=== PATIENT | female | born 1995 | race American Indian/Alaskan Native ===

== ENCOUNTER 2017-03-26 09:48 | Emergency (ER) | payer SELFPAY ==
--- NOTE | 2017-03-26 10:34 | Emergency Department Report ---
Chief Complaint: Abdominal Pain Stated Complaint: ABD PAIN Time Seen by Provider: 03/26/17 10:30 - HPI History of Present Illness: PT c/o R sided abd pain x months. PT states it hurts worse when she has gas. - ROS Review of Systems: -n/v - dysuria - changes in menstrual cycle - Exam Physical Exam: PT looks well, non toxic. steady gait abd soft and not tender MSE screening note: Focused history and physical exam performed. Due to findings the following was ordered: labs ED Disposition for MSE Condition: Stable
[2017-03-26 10:50] LABS: Basophils % (Auto) 0.5 % (0.0-1.8); Eosinophils % (Auto) 5.1 % (0.0-4.3); Hematocrit 37.5 % (30.3-42.9); Hemoglobin 12.4 gm/dl (10.1-14.3); Mean Corpuscular HGB Conc 33 % (30-34); Mean Corpuscular Hemoglobin 30 pg (28-32); Mean Corpuscular Volume 90 fl (79-97); Platelet Count 206 K/mm3 (140-440); Red Blood Count 4.16 M/mm3 (3.65-5.03); Red Cell Distribution Width 13.2 % (13.2-15.2); White Blood Count 4.6 K/mm3 (4.5-11.0)
[2017-03-26 11:03] LABS: Alanine Aminotransferase 23 units/L (7-56); Albumin 4.3 g/dL (3.9-5); Albumin/Globulin Ratio 1.4 %; Alkaline Phosphatase 49 units/L (35-129); Anion Gap 17 mmol/L; BUN/Creatinine Ratio 12.85; Blood Urea Nitrogen 9 mg/dL (7-17); Calcium 9.3 mg/dL (8.4-10.2); Carbon Dioxide 24 mmol/L (22-30); Chloride 101.9 mmol/L (98-107); Glucose 90 mg/dL (65-100); Potassium 4.4 mmol/L (3.6-5.0); Sodium 138 mmol/L (137-145); Total Protein 7.4 g/dL (6.3-8.2)
[2017-03-26 11:34] LABS: Bilirubin,Urine NEG (Negative); Blood,Urine LG (Negative); Ketones,Urine NEG (Negative); Leukocyte Esterase,Urine NEG (Negative); Mucus,Urine 3+ /HPF; Nitrite,Urine NEG (Negative); Urobilinogen,Urine < 2.0 mg/dL (<2.0)
[2017-03-26 11:35] LABS: RBC,Urine > 182.0 /HPF (0.0-6.0)
[2017-03-26 14:23] VITALS: BP 114/70
--- NOTE | 2017-03-26 15:12 | Emergency Department Report ---
ED Abdominal Pain HPI - General Chief Complaint: Abdominal Pain Stated Complaint: ABD PAIN Time Seen by Provider: 03/26/17 10:30 Source: patient Mode of arrival: Ambulatory Limitations: No Limitations - History of Present Illness Initial Comments: 22 year old female presents to ED with lower abdominal pain x 1 month. patient states she is but unsure of how far along her is at the moment. patient states LMP was February. patient denies vaginal bleeding , discharge or dysuria. patient is stable, neurologically intact and in no acute distress. MD Complaint: abdominal pain -: Gradual, month(s) Location: RLQ Radiation: RLQ Severity: mild Severity scale (0 -10): 0 Quality: cramping Consistency: now resolved Improves With: nothing Worsens With: nothing Associated Symptoms: denies: nausea, vomiting, diarrhea, fever, dysuria - Related Data LMP Date: 03/01/17 Allergies Allergy/AdvReac Type Severity Reaction Status Date / Time No Known Allergies Allergy Verified 03/26/17 10:35 ED Review of Systems ROS: Stated complaint: ABD PAIN Other details as noted in HPI Constitutional: denies: chills, fever Eyes: denies: eye pain, eye discharge, vision change ENT: denies: ear pain, throat pain Respiratory: denies: cough, shortness of breath, wheezing Cardiovascular: denies: chest pain, palpitations Endocrine: no symptoms reported Gastrointestinal: abdominal pain. denies: nausea, vomiting, diarrhea Genitourinary: denies: urgency, dysuria, discharge Musculoskeletal: denies: back pain, joint swelling, arthralgia Skin: denies: rash, lesions Neurological: denies: headache, weakness, paresthesias Psychiatric: denies: anxiety, depression Hematological/Lymphatic: denies: easy bleeding, easy bruising ED Past Medical Hx - Past Medical History Previous Medical History?: No - Surgical History Past Surgical History?: No - Social History Smoking Status: Never Smoker Substance Use Type: None ED Physical Exam - General Limitations: No Limitations General appearance: alert, in no apparent distress - Head Head exam: Present: atraumatic, normocephalic - Eye Eye exam: Present: normal appearance - ENT ENT exam: Present: mucous membranes moist - Neck Neck exam: Present: normal inspection - Respiratory Respiratory exam: Present: normal lung sounds bilaterally. Absent: respiratory distress - Cardiovascular Cardiovascular Exam: Present: regular rate, normal rhythm. Absent: systolic murmur, diastolic murmur, rubs, gallop - GI/Abdominal GI/Abdominal exam: Present: soft, normal bowel sounds, other (negative Obturator sign, negative McBurneys sign, negative Psoas sign). Absent: distended, tenderness, guarding, rebound - Extremities Exam Extremities exam: Present: normal inspection, full ROM - Back Exam Back exam: Present: normal inspection, full ROM. Absent: tenderness - Neurological Exam Neurological exam: Present: alert, oriented X3, normal gait - Psychiatric Psychiatric exam: Present: normal affect, normal mood - Skin Skin exam: Present: warm, dry, intact, normal color. Absent: rash ED Course Vital Signs 03/26/17 03/26/17 10:32 14:22 Temperature 98.1 F 98.1 F Pulse Rate 86 74 Respiratory 16 18 Rate Blood Pressure 123/81 Blood Pressure 114/70 [Left] O2 Sat by Pulse 100 100 Oximetry ED Medical Decision Making - Lab Data Result diagrams: 03/26/17 10:36 03/26/17 10:36 - Radiology Data Radiology results: report reviewed U/S No intrauterine gestational sac. Cyst right ovary. Unremarkable right lower quadrant. No masses identified. - Medical Decision Making 22 year old female presents to ED with right lower quadrant pain. patient is approx 3.5 weeks . no acute findings on ultrasound present aside from right ovarian cyst. patient understands to return to this ED within 48 hours for HCG recheck. patient is stable, neurologically intact and in no acute distress. patient has no tenderness on examination and states she is no longer in pain. Patient also understands to return to ED immediately if symptoms worsen or new symptoms occur. Critical care attestation.: If time is entered above; I have spent that time in minutes in the direct care of this critically ill patient, excluding procedure time. ED Disposition Clinical Impression: Abdominal pain during in first trimester Disposition: DC-01 TO HOME OR SELFCARE Is pt being admited?: No Does the pt Need Aspirin: No Condition: Stable Instructions: Abdominal Pain (ED) Referrals: PRIMARY CARE,MD [Primary Care Provider] - 2-3 Days (Return to ED in 48 hours for HCG recheck. ) Forms: Work/School Release Form(ED)
--- NOTE | 2017-03-26 16:04 | Ultrasound Report ---
Pelvic and transvaginal sonography: History: and pain. Right lower quadrant pain. Findings: Uterus measures 10.8 x 4.5 x 4.7 cm. Endometrial thickness 1.4 cm. No mass within the endometrium. No gestational sac within the uterus. Right ovary 4.7 x 3.07 x 2.9 cm. Left ovary 4.05 x 1.9 x 1.9 cm. Cyst in the right ovary measures 3.4 x 2.4 x 3.2 cm. There is free fluid noted in the cul-de-sac. Impression: No intrauterine gestational sac. Cyst right ovary. Sonogram of right lower quadrant. Findings: The appendix is not visualized. Bowel gas pattern is noted. No masses identified. Impression: Unremarkable right lower quadrant.
[2017-03-26] MEDS ORDERED: TYLENOL PO ONE (16:09)
== END 2017-03-26 16:35 | disposition home or self-care (01) ==
LOC: ED 09:48
DX: O26.891 Other specified pregnancy related conditions, first trimester (principal); Z3A.01 Less than 8 weeks gestation of pregnancy
CPT/HCPCS: 36415; 76705; 76801; 76817; 80053; 81001; 84702; 84703; 85025; 86900; 86901; 87210; 87591; 99284

== ENCOUNTER 2017-04-22 15:08 | Emergency (ER) | payer SELFPAY ==
[2017-04-22 15:44] VITALS: BP 108/62
--- NOTE | 2017-04-22 15:45 | Emergency Department Report ---
Chief Complaint: OB/Uterine Contractions Stated Complaint: 8 WKS , CRAMPING Time Seen by Provider: 04/22/17 15:40 - HPI History of Present Illness: pt states she is eight weeks and having pains. pt states she was told she was on 03-26-17 when she was seen in the ED. - ROS Review of Systems: - vaginal bleeding + intermittent crampy pains to lower abd - Exam Vital Signs: Vital Signs 04/22/17 15:39 Temperature 98.4 F Pulse Rate 89 Respiratory 16 Rate Blood Pressure 108/62 O2 Sat by Pulse 100 Oximetry Physical Exam: PT looks well, non toxic steady gait gcs 15 gu exam not performed in triage MSE screening note: Focused history and physical exam performed. Due to findings the following was ordered: ED Disposition for MSE Condition: Stable
[2017-04-22 16:58] LABS: Basophils % (Auto) 0.5 % (0.0-1.8); Eosinophils % (Auto) 2.4 % (0.0-4.3); Hematocrit 38.6 % (30.3-42.9); Mean Corpuscular HGB Conc 34 % (30-34); Mean Corpuscular Hemoglobin 30 pg (28-32); Mean Corpuscular Volume 90 fl (79-97); Platelet Count 233 K/mm3 (140-440); Red Cell Distribution Width 12.8 % (13.2-15.2); White Blood Count 4.1 K/mm3 (4.5-11.0)
[2017-04-22 17:15] LABS: Alanine Aminotransferase 18 units/L (7-56); Albumin 4.4 g/dL (3.9-5); Albumin/Globulin Ratio 1.1 %; Alkaline Phosphatase 43 units/L (35-129); BUN/Creatinine Ratio 13.33; Blood Urea Nitrogen 8 mg/dL (7-17); Calcium 9.7 mg/dL (8.4-10.2); Carbon Dioxide 23 mmol/L (22-30); Glucose 83 mg/dL (65-100); Total Protein 8.3 g/dL (6.3-8.2)
[2017-04-22 17:16] LABS: Anion Gap 18 mmol/L; Chloride 95.4 mmol/L (98-107); Potassium 4.1 mmol/L (3.6-5.0); Sodium 132 mmol/L (137-145)
--- NOTE | 2017-04-22 19:00 | Ultrasound Report ---
FINAL REPORT EXAM: US OB TRANSVAGINAL HISTORY: , pelvic pain and cramping . LMP 03/01/2017 with estimated age 7 weeks 3 days and EDC 12/06/2017. Status serum HCG quantitation 132, 874 TECHNIQUE: Ultrasound of the pelvis using transabdominal and transvaginal imaging PRIORS: None. FINDINGS: Uterus: Uterus is enlarged in size, retroverted in position, and normal and homogeneous in echogenicity without focal fibroid formation. The uterus measures 9.6 x 4.5 x 6.4 cm in size. There is a single early viable intrauterine gestation noted in the fundus. Intrauterine gestation: There is a single intrauterine gestation identified with both a pole and yolk sac. heart rate is monitored at 164 BPM using M-mode doppler. [place]-rump length measurement of 17.2 mm corresponds to estimated age 8 weeks 1 days with EDC 12/01/2017. Ovaries: Both ovaries appear normal in echogenicity with normal blood flow bilaterally. The right ovary is enlarged. The right ovary measures 4.0 x 3.3 x 2.5 cm on the left ovary measures 2.7 x 1.2 x 3.2 cm in size. Within the right ovary, there is a 2.7 cm hypoechoic avascular focus and a 1.6 cm mildly complex cystic focus containing internal debris. Other: There is no evidence for solid adnexal mass is seen. There is a mild amount of nonspecific free fluid in the cul-de-sac. IMPRESSION: Single intrauterine viable with an approximate age of 8 weeks 1 days. Hypoechoic avascular focus in the right ovary is likely a corpus luteum.
--- NOTE | 2017-04-22 19:00 | Ultrasound Report ---
FINAL REPORT EXAM: US OB \T\lt; = 14 WEEKS FETUS HISTORY: , pelvic pain and cramping . LMP 03/01/2017 with estimated age 7 weeks 3 days and EDC 12/06/2017. Status serum HCG quantitation 132, 874 TECHNIQUE: Ultrasound of the pelvis using transabdominal and transvaginal imaging PRIORS: None. FINDINGS: Uterus: Uterus is enlarged in size, retroverted in position, and normal and homogeneous in echogenicity without focal fibroid formation. The uterus measures 9.6 x 4.5 x 6.4 cm in size. There is a single early viable intrauterine gestation noted in the fundus. Intrauterine gestation: There is a single intrauterine gestation identified with both a pole and yolk sac. heart rate is monitored at 164 BPM using M-mode doppler. [place]-rump length measurement of 17.2 mm corresponds to estimated age 8 weeks 1 days with EDC 12/01/2017. Ovaries: Both ovaries appear normal in echogenicity with normal blood flow bilaterally. The right ovary is enlarged. The right ovary measures 4.0 x 3.3 x 2.5 cm on the left ovary measures 2.7 x 1.2 x 3.2 cm in size. Within the right ovary, there is a 2.7 cm hypoechoic avascular focus and a 1.6 cm mildly complex cystic focus containing internal debris. Other: There is no evidence for solid adnexal mass is seen. There is a mild amount of nonspecific free fluid in the cul-de-sac. IMPRESSION: Single intrauterine viable with an approximate age of 8 weeks 1 days. Hypoechoic avascular focus in the right ovary is likely a corpus luteum.
--- NOTE | 2017-04-23 15:09 | ED Elopement Review ---
ED Pt Elopement review - Results review Lab results: Laboratory Tests 04/22/17 04/22/17 04/22/17 16:45 16:45 16:45 WBC 4.1 L RBC 4.30 Hgb 13.0 Hct 38.6 MCV 90 MCH 30 MCHC 34 RDW 12.8 L Plt Count 233 Lymph % (Auto) 31.6 [place] % (Auto) 8.4 H Eos % (Auto) 2.4 Baso % (Auto) 0.5 Lymph # 1.3 [place] # 0.3 Eos # 0.1 Baso # 0.0 Seg Neutrophils % 57.1 Seg Neutrophils # 2.3 Sodium 132 L Potassium 4.1 Chloride 95.4 L Carbon Dioxide 23 Anion Gap 18 BUN 8 Creatinine 0.6 L Estimated GFR > 60 BUN/Creatinine Ratio 13.33 Glucose 83 Calcium 9.7 Total Bilirubin 0.40 AST 16 ALT 18 Alkaline Phosphatase 43 Total Protein 8.3 H Albumin 4.4 Albumin/Globulin Ratio 1.1 HCG, Quant [id number] H - Call Back decision Pt Call Back Decision: Pt to F/U with PMD
== END 2017-04-23 00:20 | disposition left against medical advice (07) ==
LOC: ED 15:08
DX: O26.891 Other specified pregnancy related conditions, first trimester (principal); R10.30 Lower abdominal pain, unspecified; Z3A.08 8 weeks gestation of pregnancy; Z53.21 Procedure and treatment not carried out due to patient leaving prior to being seen by health care provider
CPT/HCPCS: 36415; 76801; 76817; 80053; 84702; 85025

== ENCOUNTER 2017-11-29 18:43 | Inpatient (IN) | payer MEDICAID ==
[2017-11-29] MEDS ORDERED: BRETHINE SUB-Q PRN ×2 (21:09→21:31)
[2017-11-29] MEDS ORDERED: BRETHINE IVP PRN ×2 (21:09→21:31)
[2017-11-29] MEDS ORDERED: XYLOCAINE 2% INFILTRATI ONE ×3 (21:09→23:54)
[2017-11-29] MEDS ORDERED: ePHEDrine SULFATE IV PRN ×2 (21:09→21:31)
[2017-11-29] MEDS ORDERED: POLYCILLIN/NS 2 GM/100 ML 2 GM/100 ML BAG IV ONE (21:09)
[2017-11-29] MEDS ORDERED: STADOL IV PRN (21:09)
[2017-11-29] MEDS ORDERED: MINERAL OIL PO PRN ×2 (21:09→21:31)
[2017-11-29] MEDS ORDERED: SUBLIMAZE IV PRN (21:31)
[2017-11-29] MEDS ORDERED: NARCAN 0.4 MG/1 ML IV PRN (21:31)
[2017-11-29] MEDS ORDERED: ZOFRAN IV PRN (21:31)
--- NOTE | 2017-11-29 21:31 | History and Physical Report ---
History of Present Illness Date of examination: 11/29/17 Date of admission: 11/29/17 20:53 Chief complaint: Labor History of present illness: Pt is a 22yo BF EDC 12/06/17; EGA 39 0/7 weeks presents to L&D complaining of RUC's q 2-4 mins. She received care at [facility] since 11 weeks, and course has been unremarkable. records were not available and GBS is Positive. Past History Past Medical History: no pertinent history Past Surgical History: no surgical history Social history: no significant social history, single - Obstetrical History Expected Date of Delivery: 12/06/17 Actual Gestation: 39 Week(s) 1 Day(s) : 1 Medications and Allergies Allergies Allergy/AdvReac Type Severity Reaction Status Date / Time No Known Allergies Allergy Verified 04/22/17 15:39 Home Medications Medication Instructions Recorded Confirmed Last Taken Type No Known Home Medications [No 11/30/17 11/30/17 Unknown History Reported Home Medications] Active Meds: Active Medications Butorphanol Tartrate (Stadol) 2 mg IV Q2H PRN PRN Reason: Pain , Severe (7-10) Ephedrine Sulfate (Ephedrine Sulfate) 10 mg IV Q2M PRN PRN Reason: Hypotension Ampicillin Sodium (Polycillin/Ns 2 Gm/100 Ml) 2 gm in 100 mls @ 100 mls/hr IV ONCE ONE PRN Reason: Protocol Stop: 11/29/17 22:08 Lactated Ringer's (Lactated Ringers) 1,000 mls @ 125 mls/hr IV DIRECT RISHABH Oxytocin/Sodium Chloride (Pitocin/Ns 20 Unit/1000ml Drip) 20 units in 1,000 mls @ 125 mls/hr IV DIRECT RISHABH Ampicillin Sodium (Polycillin/Ns 1 Gm/50 Ml) 1 gm in 50 mls @ 100 mls/hr IV Q4HR RISHABH PRN Reason: Protocol Mineral Oil (Mineral Oil) 30 ml PO QHS PRN PRN Reason: Constipation Terbutaline Sulfate (Brethine) 0.25 mg SUB-Q ONCE PRN PRN Reason: Hyperstimulation/Hypertonicity Terbutaline Sulfate (Brethine) 0.25 mg IVP ONCE PRN PRN Reason: Hyperstimulation/Hypertonicity Review of Systems All systems: negative - Vital Signs Vital signs: Vital Signs Temp Resp 98.6 F 18 11/29/17 19:28 11/29/17 19:28 Temp Pulse Resp BP Pulse Ox 98.6 F 78 18 132/83 11/29/17 19:28 11/29/17 19:33 11/29/17 19:28 11/29/17 19:33 - Physical Exam Breasts: Positive: deferred Cardiovascular: Regular rate Lungs: Positive: Clear to auscultation Abdomen: Positive: normal appearance Genitourinary (Female): Positive: normal external genitalia Vagina: Positive: normal moisture Uterus: Positive: enlarged Extremities: Positive: normal - Obstetrical FHR: category 1 Uterine Contraction Monitor Mode: External Cervical Dilatation: 5 Cervical Effacement Percentage: 80 station: -2 Uterine Contraction Pattern: Regular Uterine Tone Measurement Phase: Contraction Uterine Contraction Intensity: Strong/Firm Results Result Diagrams: 11/29/17 20:50 All other labs normal. Assessment and Plan - Patient Problems (1) 39 weeks gestation of Onset Date: 11/29/17 Current Visit: Yes Status: Acute Plan to address problem: A: IUP @ 39 0/7 weeks in labor + GBS P: Admit to L&D for expectant vaginal delivery IV Ampicillin Obtain records
[2017-11-29 21:48] LABS: Hemoglobin 12.4 gm/dl (10.1-14.3)
[2017-11-29] MEDS ORDERED: PITOCin/NS 30 UNIT/500ML 30 UNITS/500 ML BAG IV SCH (22:00)
[2017-11-29] MEDS ORDERED: PITOCin/NS 20 UNIT/1000ML DRIP 20 UNITS/1,000 ML BAG IV SCH ×2 (22:00)
[2017-11-29] MEDS ORDERED: LACTATED RINGERS 1,000 ML IV SCH ×2 (22:00)
[2017-11-29 22:06] LABS: Hematocrit 36.6 % (30.3-42.9); Mean Corpuscular HGB Conc 34 % (30-34); Mean Corpuscular Hemoglobin 30 pg (28-32); Mean Corpuscular Volume 88 fl (79-97); Platelet Count 177 K/mm3 (140-440); Red Blood Count 4.16 M/mm3 (3.65-5.03); Red Cell Distribution Width 13.9 % (13.2-15.2)
--- NOTE | 2017-11-30 00:13 | Procedure Note ---
OB Delivery Note - Delivery Date of Delivery: 11/30/17 Surgeon: RICHARD ORDONEZ Estimated blood loss: 200cc - Vaginal Delivery presentation: vertex Delivery position: OA Intrapartum events: none Delivery induction: none Delivery augmentation: rupture of membranes Delivery monitor: external FHT, external uterine Route of delivery: Delivery placenta: spontaneous Delivery cord: nuchal cord (x1), 3 umbilical vessels Episiotomy: none Delivery laceration: 2nd degree (perineal) Delivery repair: vicryl Anesthesia: local Delivery comments: Infant delivered OA, nuchal cord x 1 reduced and infant placed on Mom's chest for [id number] bonding and delayed cord clamping. - A at 1 minute: 8 at 5 minutes: 9 Infant Gender: Male (2920gms)
[2017-11-30] MEDS ORDERED: DERMOPLAST TP PRN (00:14)
[2017-11-30] MEDS ORDERED: LANSINOH TP PRN (00:14)
[2017-11-30] MEDS ORDERED: TYLENOL PO PRN (00:14)
[2017-11-30] MEDS ORDERED: BENADRYL PO PRN (00:14)
[2017-11-30] MEDS ORDERED: DULCOLAX PR PRN (00:14)
[2017-11-30] MEDS ORDERED: MILK OF MAGNESIA PO PRN (00:14)
[2017-11-30] MEDS ORDERED: PHENERGAN PO PRN (00:14)
[2017-11-30] MEDS ORDERED: ZOFRAN IV PRN (00:14)
[2017-11-30] MEDS ORDERED: NORCO 5/325 PO PRN (00:14)
[2017-11-30] MEDS ORDERED: TUCKS PAD TP PRN (00:14)
[2017-11-30] MEDS ORDERED: PHENERGAN PR PRN (00:14)
[2017-11-30] MEDS ORDERED: PITOCin/NS 20 UNIT/1000ML DRIP 20 UNITS/1,000 ML BAG IV SCH (01:00)
[2017-11-30] MEDS ORDERED: POLYCILLIN/NS 1 GM/50 ML 1 GM/50 ML BAG IV SCH (01:00)
[2017-11-30] MEDS ORDERED: SODIUM CHLORIDE FLUSH SYRINGE 10 ML IV NR (01:00)
[2017-11-30] MEDS: MOTRIN PO SCH ×3 (05:18→15:56)
[2017-11-30] MEDS: PRENATAL VITAMIN PO SCH (11:05)
[2017-11-30] MEDS: FEOSOL PO SCH (11:05)
[2017-11-30] MEDS: COLACE PO SCH (11:05)
[2017-11-30 12:45] LABS: Hematocrit 30.4 % (30.3-42.9); Hemoglobin 10.3 gm/dl (10.1-14.3)
[2017-11-30] MEDS: SENOKOT S PO SCH (13:05)
[2017-12-01] MEDS: FEOSOL PO SCH ×3 (00:19→22:28)
[2017-12-01] MEDS: COLACE PO SCH ×3 (00:20→22:28)
[2017-12-01] MEDS: MOTRIN PO SCH ×4 (00:21→18:12)
[2017-12-01] MEDS ORDERED: M-M-R II VACCINE SUB-Q ONE (06:00)
[2017-12-01] MEDS ORDERED: BOOSTRIX IM ONE (06:00)
--- NOTE | 2017-12-01 08:23 | Progress Note ---
Assessment and Plan - Patient Problems (1) 39 weeks gestation of Onset Date: 11/29/17 Current Visit: Yes Status: Resolved (2) (normal spontaneous vaginal delivery) Onset Date: 12/01/17 Current Visit: Yes Status: Resolved Plan to address problem: A: S/P - PPD #1 Doing well Asymptomatic anemia - stable P: May go home tomorrow. Subjective - Subjective Date of service: 12/01/17 Principal diagnosis: s/p - PPD #1 Interval history: Pt is feeling well without complaints. Bleeding improved. Patient reports: appetite normal, voiding normally, pain well controlled, flatus , ambulating normally [place]: doing well, nursing well, bottle feeding Objective - Vital Signs Latest vital signs: Vital Signs Temp Pulse Resp BP Pulse Ox 12/01/17 06:00 20 12/01/17 00:21 18 11/30/17 08:39 97.2 F L 74 18 104/54 98 Intake and Output 11/30/17 12/01/17 12/01/17 22:59 06:59 14:59 Output Total 400 Balance -400 Output: Urine 400 Void 400 Other: Total, Output Amount 400 - Exam Breasts: Present: deferred Cardiovascular: Present: Regular rate Lungs: Present: Clear to auscultation Abdomen: Present: normal appearance, soft Uterus: Present: normal, firm, fundal height below umbilicus Extremities: Present: normal - Labs Labs: Laboratory Tests 11/29/17 11/29/17 11/29/17 20:50 20:50 20:50 WBC 8.8 RBC 4.16 Hgb 12.4 Hct 36.6 MCV 88 MCH 30 MCHC 34 RDW 13.9 Plt Count 177 RPR Nonreactive Blood Type O POSITIVE Antibody Screen Negative 11/30/17 12:29 WBC RBC Hgb 10.3 Hct 30.4 D MCV MCH MCHC RDW Plt Count RPR Blood Type Antibody Screen
--- NOTE | 2017-12-01 08:48 | Discharge Summary ---
Providers - Providers Date of Admission: 11/29/17 20:53 Date of discharge: 12/02/17 Attending physician: RICHARD ORDONEZ Primary care physician: RICHARD ORDONEZ Hospitalization Reason for admission: active labor, IUP at term Delivery: Episiotomy: none Laceration: 2nd degree Other procedures: none complications: none Discharge diagnosis: IUP at term delivered [place] baby: male Hospital course: Unremarkable. Condition at discharge: Good Disposition: DC-01 TO HOME OR SELFCARE - Discharge Diagnoses (1) 39 weeks gestation of Status: Resolved (2) (normal spontaneous vaginal delivery) Status: Resolved Plan - Discharge Medications Prescriptions: Ferrous Sulfate [Feosol 325 MG tab] 325 mg PO BID #60 tablet HYDROcodone/APAP 5-325 [[place] 5-325 mg TAB] 1 each PO Q6H PRN #10 tablet PRN Reason: Pain, Moderate (4-6) Ibuprofen [Motrin 600 MG tab] 600 mg PO Q6H #30 tablet Vit-Fe Fumar-FA [ Vitamin] 1 each PO QDAY #30 tablet - Provider Discharge Summary Activity: routine, no sex for 6 weeks, no heavy lifting 4 weeks, no strenuous exercise Diet: routine Instructions: routine Additional instructions: [] Smoking cessation referral if applicable(refer to patient education folder for contact #) [] Refer to [facility] Booklet Call your doctor immediately for: * Fever > 100.5 * Heavy vaginal bleeding ( >1 pad per hour) * Severe persistent headache * Shortness of breath * Reddened, hot, painful area to leg or breast * Drainage or odor from incision. * Keep incision clean and dry at all times and follow doctor's instructions regarding bathing/showering - Follow up plan Follow up: RICHARD ORDONEZ MD [Primary Care Provider] - 6 Weeks
[2017-12-01] MEDS: PRENATAL VITAMIN PO SCH (10:22)
[2017-12-01] MEDS: SENOKOT S PO SCH (12:30)
[2017-12-02] MEDS: SENOKOT S PO SCH ×3 (00:21→02:04)
[2017-12-02] MEDS: MOTRIN PO SCH ×3 (00:22→05:48)
[2017-12-02 09:32] VITALS: BP 111/62
== END 2017-12-02 11:05 | disposition home or self-care (01) | DRG 775 ==
LOC: TRG 18:43 → LD 20:53 → TRG 20:53 → OB 11-30 01:16
PROVIDERS: ADMIT Obstetrics & Gynecology; ATTEND Obstetrics & Gynecology
PROC: 10E0XZZ Delivery of Products of Conception, External Approach (ICD-10-PCS; principal; 2017-11-30)
PROC: 0KQM0ZZ Repair Perineum Muscle, Open Approach (ICD-10-PCS; 2017-11-30)
PROC: 3E0234Z Introduction of Serum, Toxoid and Vaccine into Muscle, Percutaneous Approach (ICD-10-PCS; 2017-12-01)
DX: O69.81X0 Labor and delivery complicated by cord around neck, without compression, not applicable or unspecified (principal); O99.02 Anemia complicating childbirth; D64.9 Anemia, unspecified; O70.1 Second degree perineal laceration during delivery; Z3A.39 39 weeks gestation of pregnancy; Z37.0 Single live birth; Z23 Encounter for immunization; O99.824 Streptococcus B carrier state complicating childbirth
CPT/HCPCS: 36415; 85014; 85018; 85027; 86592; 86850; 86900; 86901; A6250; J0290; J0595; J2590; J7120

== ENCOUNTER 2022-03-24 12:41 | Emergency (ER) | payer MEDICAID, OTHER ==
[2022-03-24] MEDS ORDERED: SODIUM CHLORIDE 0.9% 1000 ML 1,000 ML IV ONE (13:23)
--- NOTE | 2022-03-24 13:23 | Emergency Department Report ---
ED General Adult HPI - General Chief complaint: Vaginal Bleeding Stated complaint: WEAKNESS/TACHYCARDIA Time Seen by Provider: 03/24/22 13:16 Source: EMS Mode of arrival: Stretcher Limitations: No Limitations - History of Present Illness Initial comments: Patient presents with vaginal bleeding that has occurred today she states that has progressively gotten worse for over the last 3 days. She states that she feels dizzy and lightheaded she has no fever or chills she states that she has been using roughly a pad an hour. Severity scale (0 -10): 0 - Related Data Previous Rx's Medication Instructions Recorded Last Taken Type Ferrous Sulfate [Feosol 325 MG tab] 325 mg PO BID #60 tablet 12/01/17 Unknown Rx HYDROcodone/APAP 5-325 [[place] 1 each PO Q6H PRN #10 tablet 12/01/17 Unknown Rx 5-325 mg TAB] Vit-Fe Fumar-FA [ 1 each PO QDAY #30 tablet 12/01/17 Unknown Rx Vitamin] Ibuprofen [Motrin 600 MG tab] 600 mg PO Q6H #30 tablet 03/24/22 Unknown Rx Allergies Allergy/AdvReac Type Severity Reaction Status Date / Time No Known Allergies Allergy Verified 03/24/22 13:17 ED Review of Systems ROS: Stated complaint: WEAKNESS/TACHYCARDIA Other details as noted in HPI ED Past Medical Hx - Past Medical History Hx Hypertension: No Hx Diabetes: No Hx Deep Vein Thrombosis: No Hx Renal Disease: No Hx Sickle Cell Disease: No Hx Seizures: No Hx Asthma: No Hx HIV: No - Social History Smoking Status: Never Smoker - Medications Home Medications: Home Medications Medication Instructions Recorded Confirmed Last Taken Type Ferrous Sulfate [Feosol 325 MG tab] 325 mg PO BID #60 tablet 12/01/17 Unknown Rx HYDROcodone/APAP 5-325 [[place] 1 each PO Q6H PRN #10 tablet 12/01/17 Unknown Rx 5-325 mg TAB] Vit-Fe Fumar-FA [ 1 each PO QDAY #30 tablet 12/01/17 Unknown Rx Vitamin] Ibuprofen [Motrin 600 MG tab] 600 mg PO Q6H #30 tablet 03/24/22 Unknown Rx ED Physical Exam - General Limitations: No Limitations ED Course Vital Signs 03/24/22 03/24/22 03/24/22 13:16 13:19 13:35 Temperature 98.4 F Pulse Rate 186 H Respiratory 19 19 Rate Blood Pressure Blood Pressure 150/90 [Left] O2 Sat by Pulse 93 100 Oximetry 03/24/22 03/24/22 03/24/22 14:01 15:01 16:01 Temperature Pulse Rate 125 H 121 H 123 H Respiratory 13 14 12 Rate Blood Pressure Blood Pressure [Left] O2 Sat by Pulse 100 Oximetry 03/24/22 03/24/22 03/24/22 17:01 17:49 18:01 Temperature 98.2 F Pulse Rate 111 H 128 H 119 H Respiratory 15 24 12 Rate Blood Pressure 138/80 142/80 142/80 Blood Pressure [Left] O2 Sat by Pulse Oximetry 03/24/22 03/24/22 03/24/22 18:03 18:04 18:34 Temperature 98.7 F 98.2 F 98.2 F Pulse Rate 117 H 113 H 98 H Respiratory 15 15 19 Rate Blood Pressure 134/74 127/71 109/69 Blood Pressure [Left] O2 Sat by Pulse 100 100 Oximetry 03/24/22 03/24/22 03/24/22 19:01 19:48 19:49 Temperature 98.2 F 98 F Pulse Rate 103 H 98 H 113 H Respiratory 15 19 14 Rate Blood Pressure 109/61 109/69 102/60 Blood Pressure [Left] O2 Sat by Pulse 100 100 100 Oximetry 03/24/22 20:01 Temperature Pulse Rate 94 H Respiratory 14 Rate Blood Pressure 112/69 Blood Pressure [Left] O2 Sat by Pulse 100 Oximetry - Consultations Consultation #1: 03/24/22 20:[address] Pickard patient can be discharged after getting blood and can follow up with an appointment at 2:30 pm she can go home with naprosyn. ED Medical Decision Making - Lab Data Result diagrams: 03/24/22 13:38 03/24/22 13:38 Critical care attestation.: If time is entered above; I have spent that time in minutes in the direct care of this critically ill patient, excluding procedure time. ED Disposition Clinical Impression: Dysfunctional uterine bleeding, Severe anemia, Pelvic pain Disposition: 01 HOME / SELF CARE / HOMELESS Is pt being admited?: No Does the pt Need Aspirin: No Condition: Stable Instructions: Pelvic Pain, Female, [id number], Blood Transfusion, Adult, Care After, [id number] Prescriptions: Ibuprofen [Motrin 600 MG tab] 600 mg PO Q6H #30 tablet Referrals: TRACY CEDENO MD [Primary Care Provider] - 3-5 Days
[2022-03-24] MEDS ORDERED: KETOROLAC 30 MG/1 ML INJ IV ONE (13:24)
[2022-03-24 14:03] LABS: Basophils % (Auto) 0.5 % (0.0-1.8); Eosinophils % (Auto) 0.6 % (0.0-4.3); Lymphocytes # (Auto) 1.2 K/mm3 (1.2-5.4); Lymphocytes % (Auto) 16.9 % (13.4-35.0); Mean Corpuscular HGB Conc 33 % (30-34); Mean Corpuscular Volume 90 fl (79-97); Monocytes # (Auto) 0.4 K/mm3 (0.0-0.8); Monocytes % (Auto) 5.3 % (0.0-7.3); Platelet Count 287 K/mm3 (140-440); Red Blood Count 1.97 M/mm3 (3.65-5.03); Red Cell Distribution Width 13.7 % (13.2-15.2)
[2022-03-24 14:24] LABS: BUN/Creatinine Ratio 10; Blood Urea Nitrogen 8 mg/dL (7-17); Calcium 8.6 mg/dL (8.4-10.2); Hemolysis Index 3
[2022-03-24 14:50] LABS: Hematocrit 17.7 % (30.3-42.9); Hemoglobin 5.8 gm/dl (10.1-14.3)
[2022-03-24] MEDS ORDERED: SODIUM CHLORIDE 0.9% 500 ML 500 ML IV ONE (14:58)
--- NOTE | 2022-03-24 16:55 | Ultrasound Report ---
Pelvic ultrasound INDICATION: Pain FINDINGS: Uterus measures 9.9 x 4.7 x 6.8 cm. Endometrium is thickened measuring 9 to 10 mm. Ovaries are normal in size and appearance with normal flow. Left ovarian cyst measures 1.4 cm IMPRESSION: Left ovarian cyst measures 1.4 cm. No free fluid is seen in the pelvis. Uterus is heterogeneous. Signer Name: Natanael Cornelius MD Signed: 03/24/2022 4:50 PM Workstation Name: [id number]
[2022-03-24] MEDS ORDERED: SODIUM CHLORIDE 0.9% 500 ML 500 ML ONE (17:36)
[2022-03-25 00:01] LABS: Hematocrit 21.5 % (30.3-42.9); Hemoglobin 7.3 gm/dl (10.1-14.3); Mean Corpuscular HGB Conc 34 % (30-34); Mean Corpuscular Volume 87 fl (79-97); Platelet Count 236 K/mm3 (140-440); Red Blood Count 2.46 M/mm3 (3.65-5.03); Red Cell Distribution Width 14.7 % (13.2-15.2)
[2022-03-25 02:58] VITALS: BP 106/69
== END 2022-03-25 02:58 | disposition home or self-care (01) ==
LOC: ED 12:41
DX: N93.8 Other specified abnormal uterine and vaginal bleeding (principal); R10.2 Pelvic and perineal pain; D64.9 Anemia, unspecified
CPT/HCPCS: 36415; 36430; 76817; 80048; 84702; 84703; 85025; 85027; 86850; 86900; 86901; 86920; 96361; 96374; 99284; J1885; J7030; J7040; P9016; 76830